=== PATIENT | female | born 1960 | race Hispanic/Latino ===

== ENCOUNTER 2022-09-24 06:41 | Emergency (ER) | payer BC, OTHER ==
[~2022-09-24] VITALS: Ht 154.9 cm; Wt 68.9 kg
[2022-09-24] MEDS ORDERED: KETOROLAC TROMETHAMINE 60 MG/2 ML VIAL IM ONE (07:15)
[2022-09-24] MEDS ORDERED: METHOCARBAMOL500 MG PO (10:00)
== END 2022-09-24 11:26 | disposition home or self-care (01) ==
LOC: ER 06:43
DX: S16.1XXA Strain of muscle, fascia and tendon at neck level, initial encounter (principal); S20.219A Contusion of unspecified front wall of thorax, initial encounter; S40.012A Contusion of left shoulder, initial encounter; S70.02XA Contusion of left hip, initial encounter; V43.52XA Car driver injured in collision with other type car in traffic accident, initial encounter; Y92.488 Other paved roadways as the place of occurrence of the external cause; E11.9 Type 2 diabetes mellitus without complications; E78.5 Hyperlipidemia, unspecified; E78.00 Pure hypercholesterolemia, unspecified
CPT/HCPCS: 71046; 72050; 72125; 73030; 73502; 93005; 99283; J1885